=== PATIENT | male | born 1950 | race Caucasian/White ===

== ENCOUNTER 2023-06-20 06:09 | Day surgery (SDC) | payer MEDICARE ==
[~2023-06-20 06:09] MED LIST: Dextrose 5%-0.45% NaCl 1,000 ML IV SCH
[2023-06-20] MEDS ORDERED: Midazolam 1 MG/ML 2 ML SDV IV ONE ×5 (06:10→07:31)
[2023-06-20] MEDS ORDERED: fentaNYL 100 MCG/2 ML SDV IV ONE ×3 (06:10→07:22)
[2023-06-20] MEDS ORDERED: Midazolam 1 MG/ML 2 ML SDV ONE (06:20)
[2023-06-20] MEDS ORDERED: fentaNYL 100 MCG/2 ML SDV ONE (06:21)
== END 2023-06-20 09:10 | disposition home or self-care (01) ==
LOC: DL.ENDO 06:09
PROVIDERS: ATTEND Internal Medicine Gastroenterology
DX: Z12.11 Encounter for screening for malignant neoplasm of colon (principal); D12.2 Benign neoplasm of ascending colon; D12.3 Benign neoplasm of transverse colon; K57.30 Diverticulosis of large intestine without perforation or abscess without bleeding
CPT/HCPCS: 45385; 88305; J2250; J3010; J7042